=== PATIENT | female | born 1945 | race Caucasian/White ===

== ENCOUNTER 2024-08-17 11:47 | Emergency (ER) | payer MEDICARE, OTHER ==
[~2024-08-17] VITALS: Ht 170.2 cm; Wt 147.0 kg
[2024-08-17 12:15] LABS: CHLORIDE 103 mEq/L (98-107); POTASSIUM 5.3 mEq/L (3.5-5.1); SODIUM 144 mEq/L (136-145)
[2024-08-17] MEDS: FUROSEMIDE 40MG/4ML VIAL IV ONE (12:15)
[2024-08-17] MEDS: METHYLPREDNISOLONE SOD SUCC 125MG/2ML (ACT-O-VIAL) IV STA (12:15)
[2024-08-17 12:16] LABS: BASOPHILS % 0.4 % (0.0-2.0); CALCIUM 10.2 mg/dL (8.7-10.4); CARBON DIOXIDE 34 mEq/L (21-32); EOSINOPHILS % 1.9 % (0.0-5.0); HEMOGLOBIN. 13.9 g/dL (12.0-16.0); LYMPHOCYTES % 17.5 % (20.0-50.0); MEAN CORPUSCULAR HEMOGLOBIN 31.6 pg (28.0-32.0); MEAN CORPUSCULAR HGB CONC 32.3 g/dL (31.0-37.0); MEAN CORPUSCULAR VOLUME 97.9 fL (81.0-99.0); MEAN PLATELET VOLUME 8.2 fl (7.4-10.4); MONOCYTES % 10.4 % (2.0-8.0); NEUTROPHILS % 69.8 % (40.0-76.0); PLATELET 225 x1000/uL (130-400); RED CELL DISTRIBUTION WIDTH 16.4 % (11.6-14.6)
[2024-08-17 12:21] LABS: CREATININE 1.4 mg/dL (0.6-1.0); GLUCOSE 75 mg/dL (70-105); UREA NITROGEN BLOOD 31 mg/dL (9-23)
[2024-08-17 12:23] LABS: TROPONIN I HIGH SENSITIVITY 9 ng/L (3.0-34)
[2024-08-17] MEDS: IPRATROPIUM BROMIDE (0.02%) 0.5MG/2.5ML NEB HHN STA (12:58)
[2024-08-17 12:59] VITALS: PULSE 68; RESP 21; O2SAT 100
[2024-08-17] MEDS: ALBUTEROL (0.083%) 2.5MG/3ML NEB HHN STA (12:59)
[2024-08-17 13:57] LABS: BG BASE EXCESS -0.4 mmol/L (-2.0-3.0); BG CARBOXYHEMOGLOBIN 0.7 % (0.5-1.5); BG DEOXYHEMOGLOBIN 3.2 % (0.0-5.0); BG FRACTION INSPIRED OXYGEN 28; BG HCO3 ACT 24.9 mmol/L (21.0-28.0); BG OXYGEN SATURATION 96.8 % (94.0-98.0); BG OXYHEMOGLOBIN 96.1 % (94.0-98.0); BG PCO2 42.8 mmHg (32.0-45.0); BG PH 7.382 (7.350-7.450); BG PO2 83.9 mmHg (83.0-108.0); BG SAMPLE SITE RIGHT RADIAL; BG TOTAL HEMOGLOBIN 14.5 g/dL (12.0-16.0); BG VENT MODE NASAL CANNULA
[2024-08-17] MEDS: LEVOFLOXACIN 750MG PREMIX 150 ML IV SCH (15:18)
[2024-08-17] MEDS: OLANZAPINE 5MG TABLET ODT PO ONE (16:48)
[2024-08-17 17:10] VITALS: BP 133/89; PULSE 90; RESP 24; O2SAT 97
== END 2024-08-17 17:52 | disposition short-term general hospital (02) ==
LOC: ER 12:44
DX: J44.1 Chronic obstructive pulmonary disease with (acute) exacerbation (principal); E11.9 Type 2 diabetes mellitus without complications; E78.00 Pure hypercholesterolemia, unspecified; I11.9 Hypertensive heart disease without heart failure; I25.2 Old myocardial infarction; I48.91 Unspecified atrial fibrillation
CPT/HCPCS: 80048; 83880; 85025; 84484; 36415; 71045; 82805; 82375; 93005; 94644; 96365; 96375; 99285; 36600; J1940; J2919; J1956; 94070; 94640; 94664

== ENCOUNTER 2024-12-24 17:31 | Inpatient (IN) | payer MEDICARE ==
[~2024-12-24] VITALS: Ht 165.1 cm; Wt 112.0 kg
[2024-12-24 17:37] VITALS: O2SAT 100
[2024-12-24 18:54] LABS: BG BASE EXCESS 6.7 mmol/L (-2.0-3.0); BG CARBOXYHEMOGLOBIN 0.6 % (0.5-1.5); BG DEOXYHEMOGLOBIN 3.1 % (0.0-5.0); BG FLOW(L/min) 6.00 L/min; BG FRACTION INSPIRED OXYGEN 44; BG HCO3 ACT 35.5 mmol/L (21.0-28.0); BG METHEMOGLOBIN 0.3 % (0.5-1.5); BG OXYGEN SATURATION 96.9 % (94.0-98.0); BG OXYHEMOGLOBIN 96.0 % (94.0-98.0); BG PCO2 72.9 mmHg (32.0-45.0); BG PH 7.305 (7.350-7.450); BG PO2 92.2 mmHg (83.0-108.0); BG SAMPLE SITE LEFT RADIAL; BG TOTAL HEMOGLOBIN 13.1 g/dL (12.0-16.0); BG VENT MODE NASAL CANNULA
[2024-12-24 19:26] LABS: BASOPHILS % 0.2 % (0.0-2.0); EOSINOPHILS % 2.2 % (0.0-5.0); HEMATOCRIT. 37.1 % (36.0-48.0); HEMOGLOBIN. 12.0 g/dL (12.0-16.0); LYMPHOCYTES % 10.9 % (20.0-50.0); MEAN PLATELET VOLUME 7.5 fl (7.4-10.4); MONOCYTES % 9.4 % (2.0-8.0); NEUTROPHILS % 77.3 % (40.0-76.0); PLATELET 220 x1000/uL (130-400); RED BLOOD CELL COUNT 3.76 mill/uL (4.2-5.4); RED CELL DISTRIBUTION WIDTH 18.1 % (11.6-14.6)
[2024-12-24 19:40] VITALS: RESP 17
[2024-12-24 19:49] LABS: CREATININE 0.9 mg/dL (0.6-1.0); TROPONIN I HIGH SENSITIVITY 12 ng/L (3.0-34); UREA NITROGEN BLOOD 17 mg/dL (9-23)
[2024-12-24 19:51] LABS: ASPARTATE AMINOTRANSFERASE 15 IU/L (<34); BILIRUBIN DIRECT 0.1 mg/dL (<=3.0); BILIRUBIN TOTAL 0.4 mg/dL (0.1-1.0); PROTEIN TOTAL 5.4 g/dL (6.0-8.3)
[2024-12-24] MEDS: MAGNESIUM 2 G PREMIX 50 ML IV ONE (20:00)
[2024-12-24] MEDS ORDERED: ONDANSETRON HCL 4MG/2ML INJ IV PRN (22:00)
[2024-12-24 23:12] VITALS: BP 143/70; PULSE 72; RESP 15; TEMP 36.1956
[2024-12-25] VITALS (16 sets, daily range): BP systolic 125–173; BP diastolic 68–100; PULSE 64–97; RESP 17–32; TEMP 36.1–36.3; O2SAT 84–98
[2024-12-25] MEDS: IPRATROPIUM/ALBUTEROL 0.5-3(2.5)MG/3ML NEB HHN PRN (01:25)
[2024-12-25] MEDS ORDERED: NALOXONE HCL 0.4MG/ML VIAL IV PRN (01:30)
[2024-12-25 09:57] LABS: BASOPHILS % 0.2 % (0.0-2.0); EOSINOPHILS % 3.2 % (0.0-5.0); HEMATOCRIT. 40.1 % (36.0-48.0); HEMOGLOBIN. 12.6 g/dL (12.0-16.0); LYMPHOCYTES % 12.1 % (20.0-50.0); MEAN PLATELET VOLUME 7.3 fl (7.4-10.4); MONOCYTES % 10.4 % (2.0-8.0); NEUTROPHILS % 74.1 % (40.0-76.0); PLATELET 207 x1000/uL (130-400); RED BLOOD CELL COUNT 4.08 mill/uL (4.2-5.4); RED CELL DISTRIBUTION WIDTH 17.7 % (11.6-14.6)
[2024-12-25] MEDS: ENOXAPARIN 40MG/0.4ML SYR SUBCUT SCH (09:59)
[2024-12-25] MEDS: METHYLPREDNISOLONE SOD SUCC 40MG/ML (ACT-O-VIAL) IV SCH (10:00)
[2024-12-25 10:12] LABS: CREATININE 0.9 mg/dL (0.6-1.0); UREA NITROGEN BLOOD 18 mg/dL (9-23)
[2024-12-25 10:14] LABS: CREATINE KINASE MB FRACTION 0.7 ng/mL (0.5-3.6)
[2024-12-25 10:15] LABS: TROPONIN I HIGH SENSITIVITY 13 ng/L (3.0-34)
[2024-12-25 11:08] LABS: BG BASE EXCESS 11.2 mmol/L (-2.0-3.0); BG CARBOXYHEMOGLOBIN 0.1 % (0.5-1.5); BG DEOXYHEMOGLOBIN 1.4 % (0.0-5.0); BG FRACTION INSPIRED OXYGEN 40; BG HCO3 ACT 39.0 mmol/L (21.0-28.0); BG METHEMOGLOBIN 0.0 % (0.5-1.5); BG OXYGEN SATURATION 98.6 % (94.0-98.0); BG OXYHEMOGLOBIN 98.5 % (94.0-98.0); BG PCO2 66.9 mmHg (32.0-45.0); BG PH 7.383 (7.350-7.450); BG PO2 118.7 mmHg (83.0-108.0); BG SAMPLE SITE LEFT RADIAL; BG TOTAL HEMOGLOBIN 13.0 g/dL (12.0-16.0); BG TOTAL RESPIRATORY RATE 21 b/min; BG VENT MODE MASK - BIPAP; BG VENT RATE 16.0 set
[2024-12-25] MEDS: NYSTATIN POWDER 15GM TOP SCH (13:32)
[2024-12-25] MEDS ORDERED: CHOL-36 PO ×2 (15:34→20:44)
[2024-12-25] MEDS ORDERED: MAGN250C PO (15:34)
[2024-12-25] MEDS ORDERED: OMEP20CA14 PO ×2 (15:34→20:45)
[2024-12-25] MEDS ORDERED: CINA30 PO (15:34)
[2024-12-25] MEDS ORDERED: FAMO20TA8 PO (15:34)
[2024-12-25] MEDS ORDERED: CYAN50007 PO (15:34)
[2024-12-25] MEDS ORDERED: APIX5TAB MT (15:34)
[2024-12-25] MEDS ORDERED: SUCR1TAB PO (15:34)
[2024-12-25] MEDS ORDERED: METO-385 PO (15:34)
[2024-12-25] MEDS ORDERED: FOLI0.8T23 MT (15:34)
[2024-12-25] MEDS ORDERED: ATOR40TA70 PO ×2 (15:34→20:44)
[2024-12-25] MEDS ORDERED: ZINC220C2 (15:34)
[2024-12-25] MEDS: ENOXAPARIN 80MG/0.8ML SYR SUBCUT SCH (16:23)
[2024-12-25] MEDS: FUROSEMIDE 40MG TABLET PO SCH (16:23)
[2024-12-25] MEDS: PIPERACILLIN/TAZO 3.375G/50ML 50 ML IV SCH (16:23)
[2024-12-25] MEDS ORDERED: DEXTROSE 50% WATER 50ML SYRINGE IV PRN (19:15)
[2024-12-25] MEDS ORDERED: RISP-28 PO (20:42)
[2024-12-25] MEDS ORDERED: ZINC1CAP2 PO (20:43)
[2024-12-25] MEDS ORDERED: FURO20TA4 PO (20:43)
[2024-12-25] MEDS ORDERED: CINA30TA5 PO (20:44)
[2024-12-25] MEDS: ENOXAPARIN 120MG/0.8ML SYR SUBCUT NR (21:49)
[2024-12-25] MEDS: INSULIN LISPRO 100 UNITS/ML SUBCUT SCH (21:51)
[2024-12-25] MEDS: BLOOD SUGAR DIAGNOSTIC STRIP TEST SCH (21:53)
[2024-12-25 22:30] LABS: INR 1.1
[2024-12-26] VITALS (19 sets, daily range): BP systolic 87–171; BP diastolic 44–109; PULSE 77–96; RESP 16–36; TEMP 36.2–36.7; O2SAT 95–98
[2024-12-26] MEDS: LORAZEPAM 2MG/ML UD SYRINGE IV PRN (03:32)
[2024-12-26 06:39] LABS: INR 1.2
[2024-12-26 06:44] LABS: CREATININE 1.0 mg/dL (0.6-1.0); UREA NITROGEN BLOOD 26.0 mg/dL (9-23)
[2024-12-26 06:48] LABS: HEMATOCRIT. 37.4 % (36.0-48.0); HEMOGLOBIN. 12.2 g/dL (12.0-16.0); MEAN PLATELET VOLUME 8.0 fl (7.4-10.4); PLATELET 210 x1000/uL (130-400); RED BLOOD CELL COUNT 3.85 mill/uL (4.2-5.4); RED CELL DISTRIBUTION WIDTH 17.4 % (11.6-14.6)
[2024-12-26] MEDS: ENOXAPARIN 120MG/0.8ML SYR SUBCUT SCH (08:10)
[2024-12-26] MEDS: FUROSEMIDE 40MG/4ML VIAL IVP SCH (08:10)
[2024-12-26] MEDS: METOPROLOL SUCCINATE 50MG ER TABLET PO SCH (08:11)
[2024-12-26 13:49] LABS: LYMPHOCYTES % MANUAL 11.0 % (20.0-60.0); MONOCYTES % MANUAL 1.0 % (2.0-8.0); NEUTROPHILS % MANUAL 88.0 % (45.0-75.0); PLATELET ESTIMATE NORMAL
[2024-12-26 18:38] LABS: BG BASE EXCESS 12.5 mmol/L (-2.0-3.0); BG CARBOXYHEMOGLOBIN 0.5 % (0.5-1.5); BG DEOXYHEMOGLOBIN 6.3 % (0.0-5.0); BG FLOW(L/min) 2.00 L/min; BG FRACTION INSPIRED OXYGEN 28; BG HCO3 ACT 40.4 mmol/L (21.0-28.0); BG METHEMOGLOBIN 0.3 % (0.5-1.5); BG OXYGEN SATURATION 93.6 % (94.0-98.0); BG OXYHEMOGLOBIN 92.9 % (94.0-98.0); BG PCO2 68.2 mmHg (32.0-45.0); BG PH 7.390 (7.350-7.450); BG PO2 68.2 mmHg (83.0-108.0); BG SAMPLE SITE RIGHT RADIAL; BG TOTAL HEMOGLOBIN 13.1 g/dL (12.0-16.0); BG VENT MODE NASAL CANNULA
[2024-12-26] MEDS: METOPROLOL TARTRATE 50MG TABLET PO SCH (21:11)
[2024-12-26] MEDS: MUPIROCIN 2% OINT 22GM NS SCH (21:25)
[2024-12-27] VITALS (21 sets, daily range): BP systolic 128–170; BP diastolic 61–132; PULSE 70–94; RESP 13–33; TEMP 36.3–37.1; O2SAT 92–99
[2024-12-27 07:22] LABS: HEMATOCRIT. 40.7 % (36.0-48.0); HEMOGLOBIN. 12.9 g/dL (12.0-16.0); MEAN PLATELET VOLUME 8.3 fl (7.4-10.4); PLATELET 216 x1000/uL (130-400); RED BLOOD CELL COUNT 4.14 mill/uL (4.2-5.4); RED CELL DISTRIBUTION WIDTH 17.6 % (11.6-14.6)
[2024-12-27 07:30] LABS: CREATININE 1.0 mg/dL (0.6-1.0); UREA NITROGEN BLOOD 29 mg/dL (9-23)
[2024-12-27 07:32] LABS: ASPARTATE AMINOTRANSFERASE 44 IU/L (<34); BILIRUBIN TOTAL 0.3 mg/dL (0.1-1.0)
[2024-12-27 07:33] LABS: PROTEIN TOTAL 5.8 g/dL (6.0-8.3)
[2024-12-27] MEDS: SODIUM POLYSTYRENE SULFONATE 15 G/60 ML BOT PO NR (09:30)
[2024-12-27] MEDS: RISPERIDONE 0.25MG TABLET PO SCH ×3 (09:39→22:07)
[2024-12-27] MEDS: AMLODIPINE 5MG TABLET PO SCH (09:45)
[2024-12-27] MEDS: SODIUM ZIRCONIUM CYCLOSILICATE 10GM/PACKET PO NR (11:56)
[2024-12-27] MEDS: SODIUM CHLORIDE 0.9% 500 ML IV ONE (12:25)
[2024-12-27] MEDS ORDERED: INSULIN GLARGINE 100 UNITS/ML SUBCUT SCH (14:30)
[2024-12-27] MEDS: METHYLPREDNISOLONE SOD SUCC 40MG/ML (ACT-O-VIAL) IV SCH (14:54)
[2024-12-27] MEDS: INSULIN GLARGINE 100 UNITS/ML SUBCUT NR (14:55)
[2024-12-27 16:55] LABS: LYMPHOCYTES % MANUAL 4.0 % (20.0-60.0); MONOCYTES % MANUAL 6.0 % (2.0-8.0); NEUTROPHILS % MANUAL 90.0 % (45.0-75.0); PLATELET ESTIMATE NORMAL
[2024-12-27 18:43] LABS: GLUCOSE URINE NEGATIVE (NEGATIVE); KETONES URINE NEGATIVE (NEGATIVE); LEUKOCYTE ESTERASE URINE NEGATIVE (NEGATIVE); NITRITE URINE NEGATIVE (NEGATIVE); OCCULT BLOOD URINE 1+ (NEGATIVE); PH URINE 5.5 (4.5-8.0); PROTEIN URINE NEGATIVE (NEGATIVE); SPECIFIC GRAVITY URINE 1.012 (1.005-1.030); UROBILINOGEN URINE 0.2 E.U./dL (0.2-1.0)
[2024-12-27 20:00] LABS: COLOR URINE STRAW (YELLOW)
[2024-12-27 20:01] LABS: CLARITY URINE SL HAZY (CLEAR)
[2024-12-27 20:03] LABS: BACTERIA URINE TRACE; RBC URINE 0-2 /hpf (0-2); SQUAMOUS EPITHELIAL CELL URINE FEW /lpf (RARE/1+); WBC URINE NONE SEEN /hpf (0-2)
[2024-12-27] MEDS: HYDROCODONE/ACETAMINOPHEN 5/325MG TABLET PO PRN (22:06)
[2024-12-28] VITALS: BP 144/91; PULSE 70; RESP 27; TEMP 36.3; O2SAT 99
[2024-12-28 04:00] VITALS: BP 147/70; PULSE 69; RESP 18; TEMP 36.5; O2SAT 98
[2024-12-28 08:00] VITALS: BP 136/79; PULSE 74; RESP 18; TEMP 36.3; O2SAT 96
[2024-12-28 12:00] VITALS: BP 141/81; PULSE 64; RESP 18; TEMP 36.3; O2SAT 99
[2024-12-28 12:20] LABS: BASOPHILS % 0.1 % (0.0-2.0); CREATININE 1.0 mg/dL (0.6-1.0); EOSINOPHILS % 0.0 % (0.0-5.0); HEMATOCRIT. 39.9 % (36.0-48.0); HEMOGLOBIN. 12.5 g/dL (12.0-16.0); LYMPHOCYTES % 7.8 % (20.0-50.0); MEAN PLATELET VOLUME 7.6 fl (7.4-10.4); MONOCYTES % 9.5 % (2.0-8.0); NEUTROPHILS % 82.6 % (40.0-76.0); PLATELET 242 x1000/uL (130-400); RED BLOOD CELL COUNT 4.05 mill/uL (4.2-5.4); RED CELL DISTRIBUTION WIDTH 17.9 % (11.6-14.6); UREA NITROGEN BLOOD 22 mg/dL (9-23)
[2024-12-28 12:22] LABS: ASPARTATE AMINOTRANSFERASE 15 IU/L (<34); BILIRUBIN TOTAL 0.3 mg/dL (0.1-1.0); PROTEIN TOTAL 5.8 g/dL (6.0-8.3)
[2024-12-28 16:00] VITALS: BP 132/76; PULSE 77; RESP 18; TEMP 36.3; O2SAT 96
[2024-12-28] MEDS: VANCOMYCIN 1GM PMX (XELLIA) 200 ML IV SCH (18:20)
[2024-12-28 20:00] VITALS: BP 109/76; PULSE 68; RESP 17; TEMP 36.3; O2SAT 94
[2024-12-28] MEDS: INSULIN GLARGINE 100 UNITS/ML SUBCUT SCH (21:16)
[2024-12-29] VITALS: BP 125/97; PULSE 78; RESP 18; TEMP 35.6; O2SAT 96
[2024-12-29 04:00] VITALS: BP 153/89; PULSE 90; RESP 17; TEMP 36.5; O2SAT 95
[2024-12-29 08:00] VITALS: BP 123/73; PULSE 92; RESP 16; TEMP 36.2; O2SAT 94
[2024-12-29 12:00] VITALS: BP 101/77; PULSE 91; RESP 17; TEMP 36.3; O2SAT 96
[2024-12-29 12:29] LABS: HEMATOCRIT. 42.7 % (36.0-48.0); HEMOGLOBIN. 13.5 g/dL (12.0-16.0); MEAN PLATELET VOLUME 7.5 fl (7.4-10.4); PLATELET 267 x1000/uL (130-400); RED BLOOD CELL COUNT 4.39 mill/uL (4.2-5.4); RED CELL DISTRIBUTION WIDTH 17.9 % (11.6-14.6)
[2024-12-29 12:40] LABS: CREATININE 1.0 mg/dL (0.6-1.0)
[2024-12-29 12:41] LABS: UREA NITROGEN BLOOD 26 mg/dL (9-23)
[2024-12-29 12:42] LABS: ASPARTATE AMINOTRANSFERASE 21 IU/L (<34)
[2024-12-29 12:43] LABS: BILIRUBIN TOTAL 0.4 mg/dL (0.1-1.0); PROTEIN TOTAL 6.0 g/dL (6.0-8.3)
[2024-12-29 16:00] VITALS: BP 136/86; PULSE 78; RESP 15; TEMP 36.8; O2SAT 95
[2024-12-29 16:06] LABS: BAND% 2.0 % (1.0-6.0); LYMPHOCYTES % MANUAL 4.0 % (20.0-60.0); METAMYELOCYTES % 1.0 % (0-0); MONOCYTES % MANUAL 2.0 % (2.0-8.0); NEUTROPHILS % MANUAL 91.0 % (45.0-75.0); PLATELET ESTIMATE NORMAL
[2024-12-29 16:07] LABS: PLATELET SATELLITISM FEW
[2024-12-29] MEDS: VANCOMYCIN 1GM/200ML PMX (BAXTER) IV SCH (17:17)
[2024-12-29 20:00] VITALS: BP 135/75; PULSE 77; RESP 17; TEMP 36.8; O2SAT 95
[2024-12-29] MEDS: ASCORBIC ACID 500 MG TABLET PO SCH (21:28)
[2024-12-29] MEDS: RISPERIDONE 0.25MG TABLET PO SCH (21:28)
[2024-12-30] VITALS: BP 140/73; PULSE 70; RESP 17; TEMP 36.4; O2SAT 95
[2024-12-30 04:00] VITALS: BP 123/84; PULSE 84; RESP 17; TEMP 36.7; O2SAT 96
[2024-12-30 08:00] VITALS: BP 137/60; PULSE 77; RESP 18; TEMP 36.7; O2SAT 97
[2024-12-30] MEDS: MULTIVITAMINS,THER W-MINERALS TABLET PO SCH (09:00)
[2024-12-30 12:00] VITALS: BP 138/75; PULSE 75; RESP 18; TEMP 36.8; O2SAT 99
[2024-12-30 16:00] VITALS: BP 127/77; PULSE 77; RESP 18; TEMP 36.7; O2SAT 97
[2024-12-30 20:00] VITALS: BP 115/77; PULSE 91; RESP 16; TEMP 36.6; O2SAT 97
[2024-12-31] VITALS: BP 131/60; PULSE 97; RESP 16; TEMP 36.2; O2SAT 99
[2024-12-31 04:00] VITALS: BP 159/84; PULSE 89; RESP 16; TEMP 36.4; O2SAT 96
[2024-12-31 08:00] VITALS: BP 153/72; PULSE 94; RESP 18; TEMP 36.7; O2SAT 99
[2024-12-31 12:00] VITALS: BP 150/72; PULSE 75; RESP 18; TEMP 36.7; O2SAT 97
[2024-12-31 14:06] LABS: HEMATOCRIT. 43.6 % (36.0-48.0); HEMOGLOBIN. 13.7 g/dL (12.0-16.0); MEAN PLATELET VOLUME 8.0 fl (7.4-10.4); PLATELET 192 x1000/uL (130-400); RED BLOOD CELL COUNT 4.43 mill/uL (4.2-5.4); RED CELL DISTRIBUTION WIDTH 17.3 % (11.6-14.6)
[2024-12-31 14:14] LABS: CREATININE 0.9 mg/dL (0.6-1.0)
[2024-12-31 14:15] LABS: UREA NITROGEN BLOOD 26 mg/dL (9-23)
[2024-12-31 14:16] LABS: ASPARTATE AMINOTRANSFERASE 18 IU/L (<34)
[2024-12-31 14:17] LABS: BILIRUBIN TOTAL 0.4 mg/dL (0.1-1.0); PROTEIN TOTAL 5.8 g/dL (6.0-8.3)
[2024-12-31 16:00] VITALS: BP 148/82; PULSE 75; RESP 18; TEMP 36.8; O2SAT 97
[2024-12-31 19:18] LABS: LYMPHOCYTES % MANUAL 4.0 % (20.0-60.0); MONOCYTES % MANUAL 6.0 % (2.0-8.0); NEUTROPHILS % MANUAL 90.0 % (45.0-75.0); PLATELET ESTIMATE NORMAL
[2024-12-31 20:00] VITALS: BP 135/75; PULSE 83; RESP 17; TEMP 36.4; O2SAT 96
[2025-01-01] VITALS: BP 132/65; PULSE 64; RESP 16; TEMP 36.4; O2SAT 95
[2025-01-01 04:00] VITALS: BP 146/86; PULSE 80; RESP 17; TEMP 36.9; O2SAT 98
[2025-01-01 08:00] VITALS: BP 136/80; PULSE 73; RESP 20; TEMP 36.2; O2SAT 99
[2025-01-01] MEDS ORDERED: AMLO5TAB88 PO (08:33)
[2025-01-01 12:00] VITALS: BP 133/62; PULSE 74; RESP 18; TEMP 36.2; O2SAT 95
[2025-01-01 16:00] VITALS: BP 162/76; PULSE 78; RESP 20; TEMP 36.3; O2SAT 98
[2025-01-01 20:00] VITALS: BP 119/66; PULSE 91; RESP 18; TEMP 36.4; O2SAT 96
[2025-01-01] MEDS: ENOXAPARIN 120MG/0.8ML SYR SUBCUT SCH (21:31)
[2025-01-02 00:54] VITALS: BP 124/70; PULSE 90; RESP 18; TEMP 36.3; O2SAT 96
[2025-01-02 04:00] VITALS: BP 176/77; PULSE 90; RESP 18; TEMP 36.4; O2SAT 96
[2025-01-02 08:00] VITALS: BP 135/80; PULSE 92; RESP 19; TEMP 36.4; O2SAT 97
[2025-01-02 12:00] VITALS: BP_SYST 127; BP_SYST 137; BP_DIAS 67; PULSE 68; RESP 19; TEMP 36.6; O2SAT 94
[2025-01-02 16:00] VITALS: BP 131/74; PULSE 74; RESP 20; TEMP 36.9; O2SAT 97
[2025-01-07] MEDS ORDERED: METO25TA6 PO (15:04)
[2025-01-07] MEDS ORDERED: APIX5TAB MT (15:04)
[2025-01-07] MEDS ORDERED: ASCO-494 PO (15:04)
[2025-01-07] MEDS ORDERED: ZINC1CAP2 PO (15:04)
[2025-01-07] MEDS ORDERED: CIPR-494 MT (16:09)
== END 2025-01-02 18:50 | disposition home health service (06) | DRG 189 ==
LOC: ER 17:31 → EDBEDREQSVC 18:55 → 5EST 20:12 → EDBEDREQ 20:35 → EDBEDREQTM 20:35 → ENRESERV 22:00 → 5WST 12-28 02:15
PROVIDERS: ADMIT Internal Medicine; ATTEND Internal Medicine
PROC: 5A09357 Assistance with Respiratory Ventilation, Less than 24 Consecutive Hours, Continuous Positive Airway Pressure (ICD-10-PCS; principal; 2024-12-24)
PROC: 5A0935A Assistance with Respiratory Ventilation, Less than 24 Consecutive Hours, High Flow/Velocity Cannula (ICD-10-PCS; 2024-12-26)
DX: J96.22 Acute and chronic respiratory failure with hypercapnia (principal); I50.33 Acute on chronic diastolic (congestive) heart failure; I48.19 Other persistent atrial fibrillation; J44.1 Chronic obstructive pulmonary disease with (acute) exacerbation; E87.4 Mixed disorder of acid-base balance; Z68.41 Body mass index [BMI] 40.0-44.9, adult; I11.0 Hypertensive heart disease with heart failure; L30.4 Erythema intertrigo; E11.9 Type 2 diabetes mellitus without complications; L89.156 Pressure-induced deep tissue damage of sacral region; E66.9 Obesity, unspecified; R32 Unspecified urinary incontinence; L81.9 Disorder of pigmentation, unspecified; E87.5 Hyperkalemia; E78.00 Pure hypercholesterolemia, unspecified; F17.210 Nicotine dependence, cigarettes, uncomplicated; Z79.01 Long term (current) use of anticoagulants; Z79.899 Other long term (current) drug therapy; Z88.1 Allergy status to other antibiotic agents
CPT/HCPCS: 36415; 36600; 71045; 80048; 80053; 80076; 80202; 81003; 82375; 82550; 82553; 82805; 82962; 83036; 83605; 83735; 84132; 84145; 84484; 85025; 87077; 93005; 93306; 94070; 94640; 94660; 94664; 96365; 97162; 97165; 99285; A4606; J1650; J1815; J1938; J2060; J2543; J2919; J3373; J3475

== ENCOUNTER 2025-03-03 23:41 | Inpatient (IN) | payer MEDICARE ==
[~2025-03-03] VITALS: Ht 167.6 cm; Wt 101.2 kg
[~2025-03-03 23:41] MED LIST: AMLO5TAB88 PO; ASCO-494 PO; ATOR40TA70 PO; CHOL-36 PO; CINA30TA5 PO; CIPR-494 MT; CYAN50007 PO; FAMO20TA8 PO; FOLI0.8T23 MT; FURO20TA4 PO; MAGN250C PO; METO-385 PO; METO25TA6 PO; OMEP20CA14 PO; PANT40VI IV; RISP-28 PO; SUCR1TAB PO; ZINC1CAP2 PO
[2025-03-03 23:56] VITALS: RESP 24
[2025-03-04] VITALS (58 sets, daily range): BP systolic 55–143; BP diastolic 42–96; PULSE 88–119; RESP 15–33; TEMP 36.1–37.0296; O2SAT 97–100
[2025-03-04 00:24] LABS: BASOPHILS % 0.3 % (0.0-2.0); EOSINOPHILS % 0.3 % (0.0-5.0); HEMATOCRIT. 27.7 % (36.0-48.0); HEMOGLOBIN. 8.5 g/dL (12.0-16.0); LYMPHOCYTES % 9.8 % (20.0-50.0); MEAN PLATELET VOLUME 7.4 fl (7.4-10.4); MONOCYTES % 9.8 % (2.0-8.0); NEUTROPHILS % 79.8 % (40.0-76.0); PLATELET 256 x1000/uL (130-400); RED BLOOD CELL COUNT 2.64 mill/uL (4.2-5.4); RED CELL DISTRIBUTION WIDTH 23.4 % (11.6-14.6)
[2025-03-04 00:27] LABS: ADD RBC MORPHOLOGY YES
[2025-03-04] MEDS: ACETAMINOPHEN 1000MG/100ML 100 ML IV ONE (00:31)
[2025-03-04 00:36] LABS: CREATININE 1.1 mg/dL (0.6-1.0)
[2025-03-04 00:37] LABS: ETHANOL BLOOD < 10 mg/dL (<10); PROTEIN TOTAL 5.4 g/dL (6.0-8.3); UREA NITROGEN BLOOD 36 mg/dL (9-23)
[2025-03-04 00:38] LABS: ASPARTATE AMINOTRANSFERASE 27 IU/L (<34); TROPONIN I HIGH SENSITIVITY 25 ng/L (3.0-34)
[2025-03-04 00:39] LABS: BILIRUBIN DIRECT 0.2 mg/dL (<=3.0); BILIRUBIN TOTAL 0.4 mg/dL (0.1-1.0)
[2025-03-04 00:51] LABS: BG BASE EXCESS 7.5 mmol/L (-2.0-3.0); BG CARBOXYHEMOGLOBIN 0.6 % (0.5-1.5); BG DEOXYHEMOGLOBIN 0.0 % (0.0-5.0); BG FRACTION INSPIRED OXYGEN 100; BG HCO3 ACT 30.8 mmol/L (21.0-28.0); BG METHEMOGLOBIN 0.3 % (0.5-1.5); BG OXYGEN SATURATION 100.0 % (94.0-98.0); BG OXYHEMOGLOBIN 99.1 % (94.0-98.0); BG PCO2 38.5 mmHg (32.0-45.0); BG PH 7.521 (7.350-7.450); BG PIP 28.0 cmH2O; BG PO2 500.6 mmHg (83.0-108.0); BG SAMPLE SITE RIGHT RADIAL; BG TOTAL HEMOGLOBIN 10.2 g/dL (12.0-16.0); BG TOTAL RESPIRATORY RATE 16 b/min; BG VENT MODE MASK - BIPAP
[2025-03-04] MEDS ORDERED: SODIUM CHLORIDE 0.9% (SEPSIS BOLUS) IV ONE (01:45)
[2025-03-04] MEDS: PIPERACILLIN/TAZO 3.375G/50ML 50 ML IV NR (02:02)
[2025-03-04] MEDS: SODIUM CHLORIDE 0.9% (SEPSIS BOLUS) IV ONE (02:15)
[2025-03-04] MEDS: VANCOMYCIN 1G PREMIX 200 ML IV NR (02:48)
[2025-03-04] MEDS: ALBUTEROL (0.083%) 2.5MG/3ML NEB ONE (02:49)
[2025-03-04] MEDS: ALBUTEROL (0.083%) 2.5MG/3ML NEB HHN ONE (03:04)
[2025-03-04 04:28] LABS: CLARITY URINE TURBID (CLEAR); COLOR URINE YELLOW (YELLOW); GLUCOSE URINE NEGATIVE (NEGATIVE); KETONES URINE NEGATIVE (NEGATIVE); LEUKOCYTE ESTERASE URINE 3+ (NEGATIVE); NITRITE URINE NEGATIVE (NEGATIVE); OCCULT BLOOD URINE TRACE (NEGATIVE); PH URINE 7.0 (4.5-8.0); PROTEIN URINE 1+ (NEGATIVE); SPECIFIC GRAVITY URINE 1.017 (1.005-1.030); UROBILINOGEN URINE 0.2 E.U./dL (0.2-1.0)
[2025-03-04 04:47] LABS: *AMPHETAMINES SCREEN URINE NEGATIVE (NEGATIVE); *BARBITURATES SCREEN URINE NEGATIVE (NEGATIVE); *BENZODIAZEPINES SCREEN URINE NEGATIVE (NEGATIVE); *COCAINE SCREEN URINE NEGATIVE (NEGATIVE)
[2025-03-04 04:48] LABS: CANNABINOID URINE SCREEN NEGATIVE (NEGATIVE); ECSTASY MDMA SCREEN URINE NEGATIVE (NEGATIVE); METHADONE URINE SCREEN NEGATIVE (NEGATIVE); OPIATES URINE SCREEN PRESUMPTIVE POSITIVE (NEGATIVE); PHENCYCLIDINE URINE SCREEN NEGATIVE (NEGATIVE)
[2025-03-04 05:22] LABS: BACTERIA URINE TRACE; RBC URINE 0-2 /hpf (0-2); SQUAMOUS EPITHELIAL CELL URINE 1+ /lpf (RARE/1+); WBC URINE 25-50 /hpf (0-2)
[2025-03-04 07:06] LABS: INFLUENZA TYPE A Presumptive Negative (Pres. Neg.); INFLUENZA TYPE B Presumptive Negative (Pres. Neg.); RESPIRATORY SYNCYTIAL VIRUS Not Detected (Not Detectd)
[2025-03-04] MEDS: NOREPINEPHRINE 8MG/250ML PMX 250 ML IV PRN (07:07)
[2025-03-04] MEDS ORDERED: NALOXONE HCL 0.4MG/ML VIAL IV PRN (07:15)
[2025-03-04 08:25] LABS: INR 1.2
[2025-03-04] MEDS: ASPIRIN 81MG EC TABLET PO SCH (09:00)
[2025-03-04] MEDS: VANCOMYCIN 1G PREMIX 200 ML IV SCH (09:35)
[2025-03-04] MEDS: ENOXAPARIN 30MG/0.3ML SYR SUBCUT SCH (09:38)
[2025-03-04] MEDS: IPRATROPIUM/ALBUTEROL 0.5-3(2.5)MG/3ML NEB HHN SCH (09:50)
[2025-03-04 10:23] LABS: PLATELET ESTIMATE NORMAL
[2025-03-04] MEDS: PIPERACILLIN/TAZO 3.375G/50ML 50 ML IV SCH (11:52)
[2025-03-05] VITALS (108 sets, daily range): BP systolic 61–194; BP diastolic 40–125; PULSE 87–116; RESP 12–41; TEMP 36.7–36.8; O2SAT 94–100
[2025-03-05] MEDS: VANCOMYCIN 1G PREMIX 200 ML IV SCH (10:06)
[2025-03-05 12:11] LABS: CREATININE 0.9 mg/dL (0.6-1.0); UREA NITROGEN BLOOD 25 mg/dL (9-23)
[2025-03-05] MEDS: MIDODRINE HCL 5MG TABLET PO SCH ×2 (14:57→16:39)
[2025-03-05 17:09] LABS: CREATININE 0.9 mg/dL (0.6-1.0); UREA NITROGEN BLOOD 29 mg/dL (9-23)
[2025-03-05 20:29] LABS: BASOPHILS % 0.2 % (0.0-2.0); EOSINOPHILS % 0.8 % (0.0-5.0); HEMATOCRIT. 26.2 % (36.0-48.0); HEMOGLOBIN. 7.8 g/dL (12.0-16.0); LYMPHOCYTES % 7.5 % (20.0-50.0); MEAN PLATELET VOLUME 6.9 fl (7.4-10.4); MONOCYTES % 10.1 % (2.0-8.0); NEUTROPHILS % 81.4 % (40.0-76.0); PLATELET 236 x1000/uL (130-400); RED BLOOD CELL COUNT 2.42 mill/uL (4.2-5.4); RED CELL DISTRIBUTION WIDTH 23.5 % (11.6-14.6)
[2025-03-05] MEDS: FUROSEMIDE 40MG/4ML VIAL IVP SCH (22:57)
[2025-03-05] MEDS: ALBUMIN HUMAN 25GM/100ML (25%) IV NR (22:58)
[2025-03-06] VITALS (92 sets, daily range): BP systolic 77–188; BP diastolic 46–135; PULSE 80–124; RESP 13–43; TEMP 36.1–37; O2SAT 90–100
[2025-03-06 07:09] LABS: HEMATOCRIT. 23.3 % (36.0-48.0); HEMOGLOBIN. 7.2 g/dL (12.0-16.0); MEAN PLATELET VOLUME 6.9 fl (7.4-10.4); PLATELET 256 x1000/uL (130-400); RED BLOOD CELL COUNT 2.24 mill/uL (4.2-5.4); RED CELL DISTRIBUTION WIDTH 22.8 % (11.6-14.6)
[2025-03-06 07:16] LABS: CREATININE 1.0 mg/dL (0.6-1.0); UREA NITROGEN BLOOD 32.0 mg/dL (9-23)
[2025-03-06] MEDS ORDERED: LIDOCAINE HCL 1% 10 MG/ML 10ML VIAL ONE (07:27)
[2025-03-06] MEDS: MORPHINE SULFATE 2 MG/ML INJ (NOT FOR IM USE) IV PRN (07:50)
[2025-03-06 11:05] LABS: LYMPHOCYTES % MANUAL 6.0 % (20.0-60.0); MONOCYTES % MANUAL 8.0 % (2.0-8.0); NEUTROPHILS % MANUAL 86.0 % (45.0-75.0)
[2025-03-06 11:06] LABS: PLATELET ESTIMATE NORMAL
[2025-03-06] MEDS: CLONIDINE 0.1MG TABLET PO PRN (18:45)
[2025-03-07] VITALS (81 sets, daily range): BP systolic 60–174; BP diastolic 48–130; PULSE 78–136; RESP 13–31; TEMP 36.3–36.8; O2SAT 88–100
[2025-03-07 08:59] LABS: HEMATOCRIT. 23.5 % (36.0-48.0); HEMOGLOBIN. 7.3 g/dL (12.0-16.0); MEAN PLATELET VOLUME 6.8 fl (7.4-10.4); PLATELET 201 x1000/uL (130-400); RED BLOOD CELL COUNT 2.25 mill/uL (4.2-5.4); RED CELL DISTRIBUTION WIDTH 22.9 % (11.6-14.6)
[2025-03-07 09:24] LABS: CREATININE 0.9 mg/dL (0.6-1.0); UREA NITROGEN BLOOD 28 mg/dL (9-23)
[2025-03-07 10:41] LABS: BAND% 3.0 % (1.0-6.0); EOSINOPHILS % MANUAL 1.0 % (0.0-5.0); LYMPHOCYTES % MANUAL 9.0 % (20.0-60.0); MONOCYTES % MANUAL 5.0 % (2.0-8.0); NEUTROPHILS % MANUAL 82.0 % (45.0-75.0)
[2025-03-07 10:43] LABS: PLATELET ESTIMATE NORMAL
[2025-03-07] MEDS: VANCOMYCIN 750MG PREMIX 150 ML IV SCH (12:17)
[2025-03-07] MEDS: POTASSIUM CHLORIDE 20MEQ TABLET SR PO SCH (13:29)
[2025-03-08] VITALS (57 sets, daily range): BP systolic 76–165; BP diastolic 21–138; PULSE 49–134; RESP 15–36; TEMP 36.3–36.9; O2SAT 93–100
[2025-03-08] MEDS: DIGOXIN 500MCG/2ML AMP IV NR ×2 (02:00→07:45)
[2025-03-08 06:36] LABS: HEMATOCRIT. 25.3 % (36.0-48.0); HEMOGLOBIN. 8.0 g/dL (12.0-16.0); MEAN PLATELET VOLUME 6.8 fl (7.4-10.4); PLATELET 236 x1000/uL (130-400); RED BLOOD CELL COUNT 2.44 mill/uL (4.2-5.4); RED CELL DISTRIBUTION WIDTH 22.8 % (11.6-14.6)
[2025-03-08 06:59] LABS: CREATININE 0.9 mg/dL (0.6-1.0)
[2025-03-08 07:00] LABS: PROTEIN TOTAL 5.1 g/dL (6.0-8.3); UREA NITROGEN BLOOD 21 mg/dL (9-23)
[2025-03-08 07:01] LABS: ASPARTATE AMINOTRANSFERASE 14 IU/L (<34); BILIRUBIN DIRECT 0.2 mg/dL (<=3.0)
[2025-03-08 07:02] LABS: BILIRUBIN TOTAL 0.5 mg/dL (0.1-1.0); PHOSPHORUS 2.9 mg/dL (2.5-4.9)
[2025-03-08] MEDS: BLOOD SUGAR DIAGNOSTIC STRIP TEST SCH (07:30)
[2025-03-08] MEDS: INSULIN LISPRO 100 UNITS/ML SUBCUT SCH (08:00)
[2025-03-08 10:10] LABS: BG BASE EXCESS 4.4 mmol/L (-2.0-3.0); BG CARBOXYHEMOGLOBIN 1.7 % (0.5-1.5); BG DEOXYHEMOGLOBIN 3.2 % (0.0-5.0); BG FLOW(L/min) 2.00 L/min; BG FRACTION INSPIRED OXYGEN 28; BG HCO3 ACT 28.7 mmol/L (21.0-28.0); BG METHEMOGLOBIN 0.1 % (0.5-1.5); BG OXYGEN SATURATION 96.7 % (94.0-98.0); BG OXYHEMOGLOBIN 95.0 % (94.0-98.0); BG PCO2 41.7 mmHg (32.0-45.0); BG PH 7.455 (7.350-7.450); BG PO2 83.3 mmHg (83.0-108.0); BG SAMPLE SITE RIGHT RADIAL; BG TOTAL HEMOGLOBIN 8.6 g/dL (12.0-16.0); BG VENT MODE NASAL CANNULA
[2025-03-08] MEDS: MAGNESIUM 4 G PREMIX 100 ML IV NR (11:42)
[2025-03-08 12:12] LABS: BAND% 2.0 % (1.0-6.0); EOSINOPHILS % MANUAL 1.0 % (0.0-5.0); LYMPHOCYTES % MANUAL 16.0 % (20.0-60.0); MONOCYTES % MANUAL 11.0 % (2.0-8.0); NEUTROPHILS % MANUAL 70.0 % (45.0-75.0); NUCLEATED RED BLOOD CELLS 1 /100 WBC; PLATELET ESTIMATE NORMAL
[2025-03-08] MEDS: METOPROLOL TARTRATE 50MG TABLET PO SCH (12:38)
[2025-03-08] MEDS: DIGOXIN 125MCG TABLET PO SCH (18:52)
[2025-03-09] VITALS (8 sets, daily range): BP systolic 105–186; BP diastolic 38–105; PULSE 50–82; RESP 18–22; TEMP 36.3–36.8; O2SAT 93–100
[2025-03-09] MEDS: LORAZEPAM 2MG/ML UD SYRINGE IV PRN (00:04)
[2025-03-09 06:26] LABS: HEMATOCRIT. 24.1 % (36.0-48.0); HEMOGLOBIN. 7.4 g/dL (12.0-16.0); MEAN PLATELET VOLUME 7.0 fl (7.4-10.4); PLATELET 262 x1000/uL (130-400); RED BLOOD CELL COUNT 2.34 mill/uL (4.2-5.4); RED CELL DISTRIBUTION WIDTH 22.6 % (11.6-14.6)
[2025-03-09 06:28] LABS: INR 1.1
[2025-03-09 07:00] LABS: CREATININE 1.0 mg/dL (0.6-1.0); UREA NITROGEN BLOOD 26.0 mg/dL (9-23)
[2025-03-09 07:03] LABS: UREA NITROGEN BLOOD 24 mg/dL (9-23)
[2025-03-09 07:04] LABS: CREATININE 1.0 mg/dL (0.6-1.0)
[2025-03-09 07:05] LABS: ASPARTATE AMINOTRANSFERASE 12 IU/L (<34); PROTEIN TOTAL 4.9 g/dL (6.0-8.3)
[2025-03-09 07:06] LABS: BILIRUBIN DIRECT 0.2 mg/dL (<=3.0); BILIRUBIN TOTAL 0.4 mg/dL (0.1-1.0); PHOSPHORUS 3.1 mg/dL (2.5-4.9)
[2025-03-09] MEDS: METOPROLOL TARTRATE 25MG TABLET PO SCH (20:59)
[2025-03-10] VITALS: BP 148/57; PULSE 52; RESP 18; TEMP 37.2; O2SAT 95
[2025-03-10 04:00] VITALS: BP 146/60; PULSE 56; RESP 18; TEMP 37.2; O2SAT 96
[2025-03-10 08:00] VITALS: BP 137/68; PULSE 77; RESP 22; TEMP 36.3; O2SAT 99
[2025-03-10 11:59] VITALS: BP 144/99; PULSE 104; RESP 22; TEMP 36.4; O2SAT 98
[2025-03-10 12:12] LABS: HEMATOCRIT. 26.0 % (36.0-48.0); HEMOGLOBIN. 8.0 g/dL (12.0-16.0); MEAN PLATELET VOLUME 6.5 fl (7.4-10.4); PLATELET 307 x1000/uL (130-400); RED BLOOD CELL COUNT 2.51 mill/uL (4.2-5.4); RED CELL DISTRIBUTION WIDTH 22.3 % (11.6-14.6)
[2025-03-10 12:26] LABS: CREATININE 0.9 mg/dL (0.6-1.0); UREA NITROGEN BLOOD 26 mg/dL (9-23)
[2025-03-10 12:29] LABS: PHOSPHORUS 3.4 mg/dL (2.5-4.9)
[2025-03-10] MEDS: DEXTROSE 50% WATER 50ML SYRINGE IV PRN (14:42)
[2025-03-10 16:00] VITALS: BP 159/89; PULSE 84; RESP 22; TEMP 36.4; O2SAT 100
[2025-03-10 16:20] LABS: EOSINOPHILS % MANUAL 1.0 % (0.0-5.0); LYMPHOCYTES % MANUAL 16.0 % (20.0-60.0); MONOCYTES % MANUAL 8.0 % (2.0-8.0); NEUTROPHILS % MANUAL 75.0 % (45.0-75.0); PLATELET ESTIMATE NORMAL
[2025-03-10 20:00] VITALS: BP 126/88; PULSE 83; RESP 20; TEMP 36.3; O2SAT 95
[2025-03-11] VITALS: BP 97/67; PULSE 80; RESP 18; TEMP 36.3; O2SAT 100
[2025-03-11 04:00] VITALS: BP 146/76; PULSE 74; RESP 18; TEMP 36.4; O2SAT 95
[2025-03-11 08:00] VITALS: BP 79/40; PULSE 83; RESP 16; TEMP 35.8; O2SAT 95
[2025-03-11 08:04] LABS: BAND% 6.0 % (1.0-6.0); EOSINOPHILS % MANUAL 2.0 % (0.0-5.0); LYMPHOCYTES % MANUAL 7.0 % (20.0-60.0); MONOCYTES % MANUAL 7.0 % (2.0-8.0); NEUTROPHILS % MANUAL 78.0 % (45.0-75.0)
[2025-03-11 08:05] LABS: PLATELET ESTIMATE NORMAL
[2025-03-11] MEDS: DEXT 5%/0.45% NACL 1000ML 1,000 ML IV SCH (10:00)
[2025-03-11 11:31] LABS: BASOPHILS % 0.4 % (0.0-2.0); EOSINOPHILS % 1.6 % (0.0-5.0); HEMATOCRIT. 29.0 % (36.0-48.0); HEMOGLOBIN. 8.8 g/dL (12.0-16.0); LYMPHOCYTES % 11.3 % (20.0-50.0); MEAN PLATELET VOLUME 6.6 fl (7.4-10.4); MONOCYTES % 8.1 % (2.0-8.0); NEUTROPHILS % 78.6 % (40.0-76.0); PLATELET 300 x1000/uL (130-400); RED BLOOD CELL COUNT 2.69 mill/uL (4.2-5.4); RED CELL DISTRIBUTION WIDTH 23.1 % (11.6-14.6)
[2025-03-11 11:59] LABS: CREATININE 0.8 mg/dL (0.6-1.0); UREA NITROGEN BLOOD 20 mg/dL (9-23)
[2025-03-11 12:00] VITALS: BP 135/65; PULSE 65; RESP 20; TEMP 36.1; O2SAT 93
[2025-03-11] MEDS: MIDODRINE HCL 5MG TABLET PO SCH (13:00)
[2025-03-11 20:00] VITALS: BP 126/91; PULSE 80; RESP 24; TEMP 36.3; O2SAT 100
[2025-03-12] VITALS (8 sets, daily range): BP systolic 91–162; BP diastolic 63–100; PULSE 65–101; RESP 20–28; TEMP 36.2–36.9; O2SAT 62–100
[2025-03-12] MEDS: HYDROCODONE/ACETAMINOPHEN 5/325MG TABLET PO PRN (00:35)
[2025-03-12] MEDS: MORPHINE SULFATE 2 MG/ML INJ (NOT FOR IM USE) IV PRN (04:57)
[2025-03-12] MEDS: FUROSEMIDE 40MG TABLET PO SCH (06:32)
[2025-03-12] MEDS ORDERED: LIDOCAINE HCL 1% 10 MG/ML 10ML VIAL ONE (08:45)
[2025-03-12] MEDS ORDERED: NALOXONE HCL 0.4MG/ML VIAL IV PRN (14:30)
[2025-03-12 14:48] LABS: BG BASE EXCESS 6.4 mmol/L (-2.0-3.0); BG CARBOXYHEMOGLOBIN 1.2 % (0.5-1.5); BG DEOXYHEMOGLOBIN 1.4 % (0.0-5.0); BG FLOW(L/min) 3.50 L/min; BG FRACTION INSPIRED OXYGEN 34; BG HCO3 ACT 32.9 mmol/L (21.0-28.0); BG METHEMOGLOBIN 0.1 % (0.5-1.5); BG OXYGEN SATURATION 98.6 % (94.0-98.0); BG OXYHEMOGLOBIN 97.3 % (94.0-98.0); BG PCO2 58.4 mmHg (32.0-45.0); BG PH 7.368 (7.350-7.450); BG PO2 121.4 mmHg (83.0-108.0); BG SAMPLE SITE RIGHT RADIAL; BG TOTAL HEMOGLOBIN 9.1 g/dL (12.0-16.0); BG VENT MODE NASAL CANNULA
[2025-03-12] MEDS: PIPERACILLIN/TAZO 3.375G/50ML 50 ML IV SCH (18:12)
[2025-03-13] VITALS (13 sets, daily range): BP systolic 99–129; BP diastolic 69–112; PULSE 78–100; RESP 19–31; TEMP 36.8–36.9; O2SAT 98–100
[2025-03-13] MEDS: ALTEPLASE 2MG/VIAL ITC NR (06:30)
[2025-03-13 13:19] LABS: CREATININE 0.9 mg/dL (0.6-1.0); UREA NITROGEN BLOOD 15 mg/dL (9-23)
[2025-03-13 19:49] LABS: BASOPHILS % 0.7 % (0.0-2.0); EOSINOPHILS % 1.2 % (0.0-5.0); HEMATOCRIT. 26.5 % (36.0-48.0); HEMOGLOBIN. 8.1 g/dL (12.0-16.0); LYMPHOCYTES % 8.9 % (20.0-50.0); MEAN PLATELET VOLUME 6.4 fl (7.4-10.4); MONOCYTES % 6.7 % (2.0-8.0); NEUTROPHILS % 82.5 % (40.0-76.0); PLATELET 327 x1000/uL (130-400); RED BLOOD CELL COUNT 2.52 mill/uL (4.2-5.4); RED CELL DISTRIBUTION WIDTH 22.8 % (11.6-14.6)
[2025-03-14] VITALS (12 sets, daily range): BP systolic 90–147; BP diastolic 43–112; PULSE 83–103; RESP 19–35; TEMP 36.1–36.8; O2SAT 96–100
[2025-03-15] VITALS (12 sets, daily range): BP systolic 83–186; BP diastolic 56–165; PULSE 71–98; RESP 17–34; TEMP 36.3–36.6; O2SAT 72–99
[2025-03-16] VITALS (12 sets, daily range): BP systolic 66–152; BP diastolic 26–128; PULSE 71–104; RESP 11–33; TEMP 36.4–37.1; O2SAT 100
[2025-03-16] MEDS: ALTEPLASE 2MG/VIAL ITC NR (01:56)
[2025-03-17] VITALS (13 sets, daily range): BP systolic 88–155; BP diastolic 57–126; PULSE 73–98; RESP 18–34; TEMP 36.9–37.3; O2SAT 95–100
[2025-03-17] MEDS ORDERED: HEPARIN 1 UNIT/ML(NEONATAL) IV SCH (10:45)
[2025-03-17] MEDS: OLANZAPINE 10 MG/VIAL IM SCH (20:58)
[2025-03-18] VITALS (12 sets, daily range): BP systolic 97–168; BP diastolic 78–127; PULSE 73–102; RESP 16–36; TEMP 36.6–37.2; O2SAT 95–100
[2025-03-18 13:25] LABS: BG BASE EXCESS 8.4 mmol/L (-2.0-3.0); BG CARBOXYHEMOGLOBIN 0.6 % (0.5-1.5); BG DEOXYHEMOGLOBIN 0.9 % (0.0-5.0); BG FLOW(L/min) 4.50 L/min; BG FRACTION INSPIRED OXYGEN 38; BG HCO3 ACT 32.8 mmol/L (21.0-28.0); BG METHEMOGLOBIN 0.1 % (0.5-1.5); BG OXYGEN SATURATION 99.1 % (94.0-98.0); BG OXYHEMOGLOBIN 98.4 % (94.0-98.0); BG PCO2 45.1 mmHg (32.0-45.0); BG PH 7.480 (7.350-7.450); BG PO2 138.2 mmHg (83.0-108.0); BG SAMPLE SITE RIGHT RADIAL; BG TOTAL HEMOGLOBIN 10.1 g/dL (12.0-16.0); BG VENT MODE NASAL CANNULA
[2025-03-19] VITALS (12 sets, daily range): BP systolic 77–158; BP diastolic 48–139; PULSE 86–98; RESP 0–35; TEMP 36.4–37; O2SAT 98–100
[2025-03-19 10:23] LABS: BASOPHILS % 0.5 % (0.0-2.0); EOSINOPHILS % 1.8 % (0.0-5.0); HEMATOCRIT. 28.0 % (36.0-48.0); HEMOGLOBIN. 8.5 g/dL (12.0-16.0); LYMPHOCYTES % 13.5 % (20.0-50.0); MEAN PLATELET VOLUME 7.0 fl (7.4-10.4); MONOCYTES % 7.6 % (2.0-8.0); NEUTROPHILS % 76.6 % (40.0-76.0); PLATELET 203 x1000/uL (130-400); RED BLOOD CELL COUNT 2.66 mill/uL (4.2-5.4); RED CELL DISTRIBUTION WIDTH 22.1 % (11.6-14.6)
[2025-03-19 10:35] LABS: CREATININE 1.0 mg/dL (0.6-1.0); UREA NITROGEN BLOOD 32.0 mg/dL (9-23)
[2025-03-19] MEDS ORDERED: NALOXONE HCL 0.4MG/ML VIAL IV PRN (23:45)
[2025-03-19] MEDS: MORPHINE SULFATE 2 MG/ML INJ (NOT FOR IM USE) IV PRN (23:50)
[2025-03-20] VITALS (12 sets, daily range): BP systolic 107–141; BP diastolic 24–120; PULSE 57–98; RESP 19–38; TEMP 36.5–37.3; O2SAT 97–100
[2025-03-21] VITALS (12 sets, daily range): BP systolic 89–163; BP diastolic 61–143; PULSE 67–89; RESP 14–30; TEMP 36.2–36.8; O2SAT 97–100
[2025-03-21] MEDS: MIDODRINE HCL 5MG TABLET PO SCH (09:45)
[2025-03-22] VITALS (12 sets, daily range): BP systolic 96–148; BP diastolic 71–137; PULSE 64–94; RESP 16–33; TEMP 36.3–37.1; O2SAT 99–100
[2025-03-22] MEDS ORDERED: MIDO5TAB4 PO (10:49)
[2025-03-22] MEDS ORDERED: METO25TA6 PO (10:49)
[2025-03-22] MEDS: RISPERIDONE 0.25MG TABLET PO SCH (11:37)
[2025-03-22] MEDS: ACETAMINOPHEN 650MG/20.3ML UDC PO PRN (14:59)
[2025-03-23] VITALS (12 sets, daily range): BP systolic 75–170; BP diastolic 62–142; PULSE 74–88; RESP 18–28; TEMP 36.3–37.1; O2SAT 98–100
[2025-03-23] MEDS ORDERED: ALTEPLASE 2MG/VIAL ITC SCH (20:00)
[2025-03-24] VITALS (11 sets, daily range): BP systolic 113–171; BP diastolic 73–155; PULSE 67–91; RESP 15–25; TEMP 36.4–36.7; O2SAT 99–100
[2025-03-24] MEDS ORDERED: MIDO5TAB4 PO (11:55)
== END 2025-03-24 17:55 | disposition home health service (06) | DRG 853 ==
LOC: ER 23:41 → 5EST 03-04 01:49 → EDBEDREQ 03-04 02:00 → EDBEDREQTM 03-04 02:00 → EDBEDREQSVC 03-04 07:18 → 5WST 03-08 15:40 → 5EST 03-12 15:08
PROVIDERS: ADMIT Internal Medicine; ATTEND Internal Medicine
PROC: 5A09357 Assistance with Respiratory Ventilation, Less than 24 Consecutive Hours, Continuous Positive Airway Pressure (ICD-10-PCS; 2025-03-03)
PROC: 0QB10ZZ Excision of Sacrum, Open Approach (ICD-10-PCS; principal; 2025-03-06)
PROC: 02HV33Z Insertion of Infusion Device into Superior Vena Cava, Percutaneous Approach (ICD-10-PCS; 2025-03-06)
PROC: B548ZZA Ultrasonography of Superior Vena Cava, Guidance (ICD-10-PCS; 2025-03-06)
PROC: 02HV33Z Insertion of Infusion Device into Superior Vena Cava, Percutaneous Approach (ICD-10-PCS; 2025-03-12)
DX: A41.9 Sepsis, unspecified organism (principal); G93.41 Metabolic encephalopathy; I50.33 Acute on chronic diastolic (congestive) heart failure; L89.154 Pressure ulcer of sacral region, stage 4; L89.893 Pressure ulcer of other site, stage 3; J44.1 Chronic obstructive pulmonary disease with (acute) exacerbation; L89.626 Pressure-induced deep tissue damage of left heel; I11.0 Hypertensive heart disease with heart failure; D53.9 Nutritional anemia, unspecified; E11.649 Type 2 diabetes mellitus with hypoglycemia without coma; N39.0 Urinary tract infection, site not specified; J96.11 Chronic respiratory failure with hypoxia; F03.90 Unspecified dementia, unspecified severity, without behavioral disturbance, psychotic disturbance, mood disturbance, and anxiety; Z68.30 Body mass index [BMI] 30.0-30.9, adult; R62.7 Adult failure to thrive; I48.91 Unspecified atrial fibrillation; L22 Diaper dermatitis; S71.102A Unspecified open wound, left thigh, initial encounter; X58.XXXA Exposure to other specified factors, initial encounter; I49.3 Ventricular premature depolarization; I25.2 Old myocardial infarction; Z79.899 Other long term (current) drug therapy; Z88.1 Allergy status to other antibiotic agents; Y93.89 Activity, other specified; Y92.89 Other specified places as the place of occurrence of the external cause; Y99.8 Other external cause status
CPT/HCPCS: 36415; 36573; 36600; 71045; 72192; 80048; 80076; 80202; 80305; 80320; 81003; 82375; 82805; 82962; 83605; 83735; 83880; 84100; 84145; 84484; 85025; 87077; 87420; 87426; 87804; 89055; 92610; 93005; 93970; 94070; 94640; 94660; 94664; 96365; 97162; 97166; 97535; 99291; A4606; C1725; J1160; J1642; J1650; J1815; J1938; J2003; J2060; J2270; J2543; J2997; J3373; J3475; J3490; J7030; P9047; G0480; J0131